=== PATIENT | male | born 1970 | race Caucasian/White ===

== ENCOUNTER 2017-01-04 07:08 | Emergency (ER) | payer OTHER ==
[~2017-01-04] VITALS: Ht 172.7 cm; Wt 86.2 kg
[2017-01-04 07:18] VITALS: BP 129/84
--- NOTE | 2017-01-04 08:02 | ED UPPER/LOWER EXTREMITY COMPL ---
History of Present Illness General Chief Complaint: Lower Extremity Problems Stated Complaint: L KNEE PAIN Source: patient, old records Exam Limitations: no limitations Vital Signs & Intake/Output Vital Signs & Intake/Output Vital Signs Date Time Temp Pulse Resp B/P Pulse O2 O2 Flow FiO2 Ox Delivery Rate 01/04 0718 97.4 61 16 129/84 97 Room Air Allergies Coded Allergies: Penicillins (UNKNOWN 01/04/17) Reconcile Medications Meloxicam (Mobic) 15 MG TABLET 1 TAB PO DAILY inflammation Tylenol With Codeine (Tylenol With Codeine #3 Tablet) 300 MG-30 MG TABLET 1 TAB PO BIDP PRN breakthrough pain Triage Note: PT C/O LEFT KNEE PAIN STATES HE WOKE UP FROM BED 2 DAYS AGO AND WASN'T ABLE TO WALK ON IT. PT STATES HIS KNEE CAP IS BURNING AND HE PUT ICE ON IT LAST NIGHT AND IT DID NOT HELP. Triage Nurses Notes Reviewed? yes Onset: Abrupt Duration: day(s): (2), constant Timing: recent history Severity: moderate Severity Numbers: 7 Pain/Injury Location: Left: Knee. Method of Injury: unknown Modifying Factors: Worsens With: movement. Associated Symptoms: swelling HPI: 46-year-old male presents emergency room complaining with 2 day history of left anterior lateral knee pain that he states he woke up from sleep with. Patient states that he was doing yardwork the day before however denies any known injury or trauma. The patient had a previous left knee arthroscopy performed several years ago. He denies any redness warmth however reports a mild to moderate aching pain that is worse with change in position. He denies any other leg swelling foot ankle or hip pain. He's been taking [id number] Aleve without any improvement. Past History Travel History Traveled to [place] past 21 day No Medical History Any Pertinent Medical History? none Surgical History Surgical History: none Psychosocial History What is your primary language Guyanese Tobacco Use: Never used ETOH Use: occasional use Illicit Drug Use: denies illicit drug use Family History Hx Contributory? No Review of Systems Review of Systems Constitutional: Reports: see HPI. All Other Systems: Reviewed and Negative Comments Review of systems: See HPI, All other systems negative. Constitutional, no chills no fever, no malaise HEENT: No visual changes no sore throat no congestion Cardiovascular: No chest pain , no palpitation , Skin, no rashes, no change in skin Respiratory: No dyspnea no cough no sputum GI: No nausea no vomiting, no diarrhea : No dysuria Muscle skeletal: joint pain, no joint swelling, no back pain, no neck pain, Neurologic: No numbness , no headache Psych: No stress Heme/endocrine: No bruising no bleeding Immuno: no lymphadenopathy Physical Exam Physical Exam General Appearance: well developed/nourished, no apparent distress, alert, awake Comments: Well-developed well-nourished patient in no apparent distress. HEENT: Atraumatic, extraocular motion intact Neck: Supple, FROM, Back: FROM Cardiovascular: Regular rate and rhythms no murmurs rubs Respiratory: No respiratory distress. Patient speaking in full complete sentences. Breath sounds clear to auscultation bilaterally: NO W/R/R Upper Extremities: full range of motion Hip/Pelvis: Atraumatic/Stable. FROM Knee: Atraumatic/stable. FROM. Prepatellar swelling, no effusion. No laxity. Negative rm/anterior drawer test. pain with ROM Leg: Atraumatic. Nontender. No edema, 5 out of 5 strength in the lower extremity, normal dorsiflexion of great toe bilaterally, gross sensation is intact, patellar tendon reflex 2+ bilaterally. Ankle/Foot: Atraumatic/stable. Skin intact. FROM. No swelling, no effusion. No laxity on exam Pulses: Normal/equal DP/PT pulses bilaterally. Brisk cap refill Neuro: Alert and oriented x3 Skin: Warm & dry;No appreciable rash on exposed skin Psych: Mood affect normal, normal memory normal judgment. Progress Differential Diagnosis: cellulitis, compartment syndrome, contusion, dislocation , DVT, fracture, gout, septic arthritis, sprain, tendon injury, BURSITIS Plan of Care: Orders Procedure Date/time Status XRY-KNEE COMPLETE LEFT 01/04 0749 Active X-rays ordered from triage I discussed with the patient at length all of their results. I had an extensive conversation regarding need for close follow up with their primary care physician this week as well as return precautions. I answered all of their questions, they feel comfortable with the plan and follow-up care. Leg immobilizer is applied by nursing patient is provided with orthopedic follow-up I discussed the medications that they will receive with the patient. I gave them signs and symptoms that could indicate an adverse reaction. I have advised them to limit their activities until they can see how they respond to the medication. (NELLY SARABIA,CARINA) Diagnostic Imaging: Viewed by Me: Radiology Read. Discussed w/RAD: Radiology Read. Radiology Impression: PATIENT: CHIQUI MORENO PRESENT AGE: 46 PATIENT ACCOUNT NO: [id number] : 68 LOCATION: [facility] ORDERING PHYSICIAN: CARINA SARABIA SERVICE DATE: 01/04/17 EXAM TYPE: RAD - XRY- KNEE COMPLETE LEFT EXAMINATION: XR KNEE, LEFT CLINICAL INFORMATION: Pain. COMPARISON: None TECHNIQUE: Four views of the left knee. FINDINGS: Bones have normal alignment and the joint spaces are maintained. No acute fracture, subluxation or joint effusion. Mild soft tissue swelling in the prepatellar region. Small marginal osteophytes are seen at the patellofemoral and medial tibiofemoral compartments. There is an enthesophyte at the upper pole of the patella and anterior tibial tubercle. IMPRESSION: 1. 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 2. Mild prepatellar soft tissue swelling. 3. No acute fracture or malalignment at the left knee. DICTATED BY: JIM MALAGON MD DATE/TIME DICTATED:01/04/17813 TWITCHELL OPERATOR: JOANNE DATE/TIME TRANSCRIBED:01/04/17813 CONFIDENTIAL, DO NOT COPY WITHOUT APPROPRIATE AUTHORIZATION. <Electronically signed in Other Vendor System> SIGNED BY: JIM MALAGON MD 01/04/17817 Departure Departure Time of Disposition: 825 Disposition: HOME OR SELF CARE Condition: Stable Clinical Impression Primary Impression: Knee sprain Referrals: DONOVAN DE ANDA,MIGDALIA Gonsalez (PCP/Family) BELINDA DE ANDA,LEA Abraham Additional Instructions: mobic as discussed. tylenol with codeine for breakthrough pain- this may make you drowsy. rest, ice, elevation. follow up with orthopedist dr lima. return at anytime sooner with any concerns these were sent to your [facility] pharmacy Departure Forms: Customer Survey General Discharge Information Prescriptions: Current Visit Scripts Meloxicam (Mobic) 1 TAB PO DAILY #30 TAB Tylenol With Codeine (Tylenol With Codeine #3 Tablet) 1 TAB PO BIDP PRN breakthrough pain #10 TAB
--- NOTE | 2017-01-04 08:18 | RADIOLOGY REPORT ---
EXAMINATION: XR KNEE, LEFT CLINICAL INFORMATION: Pain. COMPARISON: None TECHNIQUE: Four views of the left knee. FINDINGS: Bones have normal alignment and the joint spaces are maintained. No acute fracture, subluxation or joint effusion. Mild soft tissue swelling in the prepatellar region. Small marginal osteophytes are seen at the patellofemoral and medial tibiofemoral compartments. There is an enthesophyte at the upper pole of the patella and anterior tibial tubercle. IMPRESSION: 1. 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 2. Mild prepatellar soft tissue swelling. 3. No acute fracture or malalignment at the left knee.
[2017-01-04] MEDS ORDERED: MOBIC15 M1 PO (08:29)
[2017-01-04] MEDS ORDERED: TYLENOL WITH C1 EACH PO (08:29)
== END 2017-01-04 08:34 ==
LOC: ERH 07:08
DX: S83.92XA Sprain of unspecified site of left knee, initial encounter (principal); X58.XXXA Exposure to other specified factors, initial encounter; Y93.H9 Activity, other involving exterior property and land maintenance, building and construction; Y92.009 Unspecified place in unspecified non-institutional (private) residence as the place of occurrence of the external cause
CPT/HCPCS: 73562-LT

== ENCOUNTER 2017-01-05 09:15 | Emergency (ER) | payer OTHER ==
[~2017-01-05] VITALS: Ht 170.2 cm; Wt 86.2 kg
[~2017-01-05 09:15] MED LIST: MOBIC15 M1 PO; TYLENOL WITH C1 EACH PO
[2017-01-05 09:21] VITALS: BP 145/85
--- NOTE | 2017-01-05 09:32 | ED UPPER/LOWER EXTREMITY COMPL ---
History of Present Illness General Chief Complaint: Lower Extremity Injury Stated Complaint: SEEN YESTERDAY FOR LEFT KNEE; NO RELIEF Source: patient Exam Limitations: no limitations Vital Signs & Intake/Output Vital Signs & Intake/Output Vital Signs Date Time Temp Pulse Resp B/P Pulse O2 O2 Flow FiO2 Ox Delivery Rate 01/05 0921 98.0 60 20 145/85 99 Room Air Allergies Coded Allergies: Penicillins (UNKNOWN 01/04/17) Reconcile Medications Meloxicam (Mobic) 15 MG TABLET 1 TAB PO DAILY inflammation Tylenol With Codeine (Tylenol With Codeine #3 Tablet) 300 MG-30 MG TABLET 1 TAB PO BIDP PRN breakthrough pain Triage Note: PT TO ED C/O CONTINUED LEFT KNEE PAIN. PT WAS SEEN IN ED YESTERDAY FOR SAME, HAD X-RAY AND SENT HOME WITH PO MEDS. Triage Nurses Notes Reviewed? yes HPI: 46 yo M presenting with left knee pain. Left knee pain for the last 3 days, constant, worse with movement, associated swelling over left anterior knee, redness. Evaluated for the same yesterday in the emergency department, left knee x-ray suggestive of osteoarthritis, discharged with Mobic and Tylenol with codeine. Ongoing pain today, patient concerned for other causes of knee pain, prompting presentation to the emergency department. Denies fever, chills, chest pain, shortness of breath, neurologic symptoms. (SHAHAB SAUER MD) Past History Travel History Traveled to [place] past 21 day No Medical History Any Pertinent Medical History? see below for history Surgical History Surgical History: none Psychosocial History What is your primary language Jamaican Tobacco Use: Never used ETOH Use: denies use Illicit Drug Use: denies illicit drug use Family History Hx Contributory? Yes (SHAHAB SAUER MD) Review of Systems Review of Systems Constitutional: Reports: no symptoms. EENTM: Reports: no symptoms. Respiratory: Reports: no symptoms. Cardiovascular: Reports: no symptoms. Gastrointestinal/Abdominal: Reports: no symptoms. Genitourinary: Reports: no symptoms. Musculoskeletal: Reports: joint pain, joint swelling. Skin: Reports: no symptoms. Neurological/Psychological: Reports: no symptoms. Hematologic/Endocrine: Reports: no symptoms. Immunological: Reports: no symptoms. All Other Systems: Reviewed and Negative (SHAHAB SAUER MD) Physical Exam Physical Exam General Appearance: well developed/nourished, mild distress Head: atraumatic Eyes: Bilateral: PERRL, EOMI. Ears, Nose, Throat: normal pharynx, normal ENT inspection, hearing grossly normal Neck: normal inspection, supple Cardiovascular/Respiratory: regular rate/rhythm Back: normal inspection Knee Left: normal range of motion, swelling, tenderness Comments: Left Knee: Moderate prepatellar swelling and erythema, with mild tenderness to palpation. Full joint range of motion with mild pain, no appreciable knee effusion. 2+ distal pulses, no sensory or motor deficits. (SHAHAB SAUER MD) Progress Differential Diagnosis: cellulitis, contusion, dislocation, fracture, gout, septic arthritis Plan of Care: Current Medications Sig/Cyn Start time Last Medication Dose Stop Time Status Admin Ketorolac 30 MG ONCE ONE 01/05 1015 UNVr Tromethamine 01/05 1016 (Toradol) Physician MDM: 46 yo M presenting with atraumatic left knee pain. VSS, afebrile, left knee exam as above. DDx: Osteoarthritis, prepatellar bursitis, gout, pseudogout, less likely cellulitis, septic joint. Patient given IM shot of Toradol with marked improvement in pain. Overall low concern for septic joint discussed the patient, reassured, given return precautions for fevers or worsening joint pain especially with reduced range of motion. Given low concern for infectious pathology, will hold antibiotics at this time. Insufficient knee joint effusion to obtain sample for arthrocentesis to assess for gout. Patient discharged with return precautions, plan to discontinue Mobic, start ibuprofen 600 mg every 6 hours, continue Tylenol/codeine for severe pain, plan to follow up with patient's PMD or orthopedist in the next 2-3 days. The plan of care was discussed with the patient who expressed agreement and understanding. D/W Dr. Johnson (SHAHAB SAUER MD) Departure Departure Disposition: HOME OR SELF CARE Condition: Stable Clinical Impression Primary Impression: Left knee pain Qualifiers: Chronicity: acute Qualified Code: M25.562 - Pain in left knee Referrals: DONOVAN DE ANDA,MIGDALIA Gonsalez (PCP/Family) Additional Instructions: Continue taking mobic or tylenol for mild-moderate pain. Take tylenol with codiene for severe pain. Follow up with your primary care physician or orthopedist. Return to the ED for any new, worsening, or concerning symptoms (merle. Fevers). Departure Forms: Customer Survey General Discharge Information (CAMACHO DE ANDA,SHAHAB) PA/FORM WORKER Co-Sign Statement Statement: ED Attending supervision documentation- [] I saw and evaluated the patient. I have also reviewed all the pertinent lab results and diagnostic results. I agree with the findings and the plan of care as documented in the PA's/FORM WORKER's documentation. [X] I have reviewed the ED Record and agree with the PA's/FORM WORKER's documentation. [] Additions or exceptions (if any) to the PAs/FORM WORKER's note and plan are summarized below: [] (SAVI DE ANDA,NII Carney)
== END 2017-01-05 10:42 ==
LOC: ERH 09:15
DX: M25.562 Pain in left knee (principal)
CPT/HCPCS: 96372; J1885